=== PATIENT | male | born 1970 | race Caucasian/White ===

== ENCOUNTER 2016-11-23 05:49 | Emergency (ER) | payer MEDICAID ==
[~2016-11-23] VITALS: Ht 165.1 cm; Wt 86.5 kg
[~2016-11-23 05:49] MED LIST: ASPI-664 PO
[2016-11-23 05:53] VITALS: Ht 165.1 cm; Wt 86.5 kg
[2016-11-23] MEDS ORDERED: ONDANSETRON 4 MG INJ IV STA (06:33)
[2016-11-23] MEDS ORDERED: SOD CHLORIDE 0.9% 1,000 ML IV STA (06:33)
[2016-11-23] MEDS ORDERED: BELLADONNA/PHENOBARBITAL TAB PO STA (06:33)
[2016-11-23] MEDS ORDERED: LIDOCAINE/MYLANTA 40 ML BTL PO STA (06:33)
[2016-11-23 06:55] LABS: ADD SCAN DIFF NO
[2016-11-23 06:57] LABS: EOSINOPHILS # 0.1 10^3/ul (0.0-0.5); EOSINOPHILS % 2.7 % (0.0-7.0); HEMATOCRIT 49.3 % (42.0-52.0); HEMOGLOBIN 16.8 g/dl (14.0-18.0); LYMPHOCYTES # 1.1 10^3/ul (0.8-2.9); LYMPHOCYTES % 26.6 % (15.0-51.0); MEAN CORPUSCULAR HEMOGLOBIN 30.1 pg (29.0-33.0); MEAN CORPUSCULAR HGB CONC 34.1 g/dl (32.0-37.0); MEAN CORPUSCULAR VOLUME 88.4 fl (82.0-101.0); MEAN PLATELET VOLUME 10.9 fl (7.4-10.4); MONOCYTE # 0.6 10^3/ul (0.3-0.9); MONOCYTES % 13.3 % (0.0-11.0); NEUTROPHIL # 2.4 10^3/ul (1.6-7.5); NEUTROPHILS % 57.2 % (39.0-77.0); PLATELET COUNT 226 10^3/UL (140-415); RED BLOOD COUNT 5.58 10^6/ul (4.70-6.10); WHITE BLOOD COUNT 4.1 10^3/ul (4.8-10.8)
[2016-11-23 07:08] LABS: INR 0.99; PROTIME 13.1 Sec (12.2-14.2)
[2016-11-23 07:11] LABS: ALBUMIN 4.7 g/dl (3.3-4.9); ALBUMIN/GLOBULIN RATIO 1.2; BILIRUBIN,INDIRECT 0.3 mg/dl (0-1.1); BILIRUBIN,TOTAL 0.3 mg/dl (0.2-1.3); CALCIUM 8.8 mg/dl (8.4-10.2); CREATININE 0.82 mg/dl (0.61-1.24); TOTAL PROTEIN 8.6 g/dl (6.1-8.1)
[2016-11-23] MEDS ORDERED: LOPE2CAP PO (07:19)
[2016-11-23] MEDS ORDERED: BISM262O23 PO (07:19)
[2016-11-23] MEDS ORDERED: MAG355OR14 PO (08:12)
[2016-11-23] MEDS ORDERED: PRAM56OI TP (08:12)
--- NOTE | 2016-11-23 09:03 | RADRPT ---
PROCEDURE: CT Abdomen and Pelvis without contrast. CLINICAL INDICATION: Abdominal and pelvic pain. TECHNIQUE: CT scan of the abdomen and pelvis without contrast was performed. Coronal and sagittal reformatted images were obtained from the axial source images. Images were reviewed on a high-resolu [employer] PACS workstation. Total exam DLP is 1252.83 mGy-cm. CTDIvol is 17.54 mGy. One or more of the following dose reduction techniques were used: Automated exposure control, adjustment of the mA and/ or kV according to patient size, use of iterative reconstruction technique. COMPARISON: None. FINDINGS: The lung bases are normal. There is no pleural effusion. The liver is normal in size and attenuation. There is no focal hepatic lesion. The gallbladder and bile ducts are normal. The spleen is normal in size. There is no focal splenic lesion. Both adrenals are normal with no enlargement or mass. The pancreas is unremarkable with no mass or evidence of pancreatitis. There is no renal mass or hydronephrosis. There is no renal calculus or ureteral calculus. The abdominal aorta is not dilated. There is no retroperitoneal lymphadenopathy or mass. There is no pelvic lymphadenopathy or mass. The bladder and distal ureters are normal. The periappendiceal region is unremarkable with no evidence of appendicitis. The appendix is well se en and appears normal. The bowel and mesentery are normal. There is no free fluid or free gas. There are mild degenerative changes of the spine. The osseous structures are otherwise unremarkable with no fracture or lytic lesion. IMPRESSION: 1. No urinary tract calculus or hydronephrosis. 2. Normal appendix. 3. Mild degenerative changes of the spine. 4. Otherwise normal noncontrast CT scan of the abdomen and pelvis. RPTAT: QQ .Mauricio Moore MD, MD Date Time Electronically viewed and signed by .Mauricio Moore MD, on 11/23/2016 09:03 .R/
[2016-11-23 09:21] VITALS: BP 118/68; PULSE 70; RESP 18
--- NOTE | 2016-11-23 13:33 | ERD ---
ER Documentation Chief Complaint Date/Time DATE: 11/23/16 TIME: 13:29 Chief Complaint diarrhea yesterday and blood in stool today HPI 46-year-old man complaining of 2-3 episodes of loose stools 2 days in the last episode of diarrhea contained some blood. He states he normally does strain on the toilet. He denies melena, no fevers or chills, no anorexia, no chest pain or shortness of breath. Patient denies recent travel or antibiotic use. ROS All systems reviewed and are negative except as per history of present illness. Medications Home Meds Active Scripts Pramoxine HCl/Zinc Oxide (Hemorrhoid 1%-12.5% Ointment) 56 Gm Oint...g., 56 GM TP BID Y for PAIN, #1 TUB Prov:MARIA E METCALF MD 11/23/16 Mag Hydrox/Al Hydrox/Simeth (Maalox Advanced Suspension) 355 Ml Oral.susp, 2 TSP PO TID for PAIN, #24 OZ Prov:MARIA E METCALF MD 11/23/16 Aspirin* (Aspirin* EC) 81 Mg Tablet.dr, 81 MG PO DAILY, #30 TAB 4 Refills Prov:MUSA MCKEON MD 12/05/14 Reported Medications Bismuth Subsalicylate* (Pepto-Bismol*) 262 Mg/15 Ml Oral.susp, 15 ML PO Q6H Y for STOMACH UPSET., ML 11/23/16 Loperamide Hcl* (Imodium*) 2 Mg Capsule, 2 MG PO Q6H Y for DIARRHEA, CAP MAX 16 mg/day 11/23/16 Allergies Allergies: Coded Allergies: No Known Drug Allergy (Verified Allergy, Mild, 12/05/14) PMhx/Soc None Medical and Surgical Hx: pt denies Surgical Hx History of Surgery: No Anesthesia Reaction: No Hx Neurological Disorder: No Hx Respiratory Disorders: No Hx Cardiac Disorders: No Hx Psychiatric Problems: No Hx Miscellaneous Medical Probl: No (DM1) Hx Alcohol Use: Yes (BEER 2 CANS PER DAY/WEEK) Hx Substance Use: No Hx Tobacco Use: Yes Smoking Status: Current every day smoker FmHx Family History: No diabetes Physical Exam Vitals Vital Signs Date Time Temp Pulse Resp B/P Pulse Ox O2 Delivery O2 Flow Rate FiO2 11/23/16 09:21 70 18 118/68 99 Room Air 11/23/16 05:53 98.1 89 18 124/72 97 Physical Exam GENERAL: Well-developed, well-nourished, well-hydrated, in no apparent distress , looks nontoxic in appearance HEENT: Moist mucous membranes, pink conjunctiva, no cervical spine tenderness or step-off deformities, no goiter, no jaundice or icterus, extraocular movements intact without pain. No submandibular induration, and no pharyngeal erythema NEURO: Alert and oriented 3, cranial nerves II through XII intact bilaterally, pupils equal round reactive to light, no focal deficits or facial asymmetry, sensation intact distally Strength 5/5 in upper and lower extremities bilaterally CARDIAC: Regular rate and rhythm, no murmurs rubs or gallops LUNGS: Clear bilaterally no wheezing crackles or stridor ABDOMEN: Soft nontender, no guarding, no rigidity, no rebound, no psoas sign no obturator sign. Normoactive bowel sounds SKIN: Warm and dry to touch, no abrasions, contusions, or hematomas, no lacerations, no ecchymosis, no target lesions, and without ulcers EXTREMITIES: No clubbing cyanosis or edema, calves are bilaterally symmetrical, no Homans sign, no popliteal cord sign. Distal pulses equal and bilateral PSYCH: Normal affect without agitation or irritability Result Diagram: 11/23/16 0640 11/23/16 0640 Results 24 hrs Laboratory Tests Test 11/23/16 06:40 White Blood Count 4.110^3/ul Red Blood Count 5.5810^6/ul Hemoglobin 16.8g/dl Hematocrit 49.3% Mean Corpuscular Volume 88.4fl Mean Corpuscular Hemoglobin 30.1pg Mean Corpuscular Hemoglobin Concent 34.1g/dl Red Cell Distribution Width 12.0% Platelet Count 25678^3/UL Mean Platelet Volume 10.9fl Neutrophils % 57.2% Lymphocytes % 26.6% Monocytes % 13.3% Eosinophils % 2.7% Basophils % 0.0% Nucleated Red Blood Cells % 0.0/100WBC Neutrophils # 2.410^3/ul Lymphocytes # 1.110^3/ul Monocytes # 0.610^3/ul Eosinophils # 0.110^3/ul Basophils # 0.010^3/ul Nucleated Red Blood Cells # 0.010^3/ul Prothrombin Time 13.1Sec Prothrombin Time Ratio 1.0 INR International Normalized Ratio 0.99 Sodium Level 138mmol/L Potassium Level 4.0mmol/L Chloride Level 104mmol/L Carbon Dioxide Level 23mmol/L Anion Gap 15 Blood Urea Nitrogen 15mg/dl Creatinine 0.82mg/dl Glucose Level 242mg/dl Calcium Level 8.8mg/dl Total Bilirubin 0.3mg/dl Direct Bilirubin 0.00mg/dl Indirect Bilirubin 0.3mg/dl Aspartate Amino Transf (AST/SGOT) 33IU/L Alanine Aminotransferase (ALT/SGPT) 61IU/L Alkaline Phosphatase 98IU/L Total Protein 8.6g/dl Albumin 4.7g/dl Globulin 3.90g/dl Albumin/Globulin Ratio 1.20 Lipase 69U/L Current Medications Medications (Trade) Dose Ordered Sig/Enrico Route PRN Reason Start Time Stop Time Status Last Admin Dose Admin Sodium Chloride (NS) 1,000 ml @ 1,000 mls/hr Q1H STAT IV 11/23/16 06:33 11/23/16 07:32 DC 11/23/16 07:09 Ondansetron HCl (Zofran Inj) 4 mg ONCE STAT IV 11/23/16 06:33 11/23/16 06:35 DC 11/23/16 07:09 Miscellaneous Medication (Gi Cocktail (2)) 40 ml ONCE STAT PO 11/23/16 06:33 11/23/16 06:35 DC 11/23/16 07:09 Belladonna/ Phenobarbital () 2 tab ONCE STAT PO 11/23/16 06:33 11/23/16 06:35 DC 11/23/16 07:09 Procedures/MDM IV line was established patient was placed on marina [employer] manager rhythm strip revealed a sinus rhythm at about 80 bpm with upright P and T waves. Patient was afebrile. I administered 1 L normal saline intravenously, GI cocktail 50 cc p.o., and Zofran 4 mg IV for nausea. Patient had no episodes of vomiting while here and symptoms improved with those medications. CBC and electrolytes were unremarkable, liver function tests were normal. CT scan of the abdomen and pelvis was performed there was no acute inflammatory infectious pathology noted. Examination of the anus reveals external hemorrhoids 12 and 6:00 o'clock without active bleeding. Differential diagnoses considered, included but not limited to acute coronary syndrome, pulmonary embolism, aortic dissection, abdominal aortic aneurysm, sepsis, stroke, meningitis, encephalitis, pneumonia, appendicitis, cholecystitis , bowel obstruction, pyelonephritis, nephrolithiasis, cystitis, as well as metabolic, hematologic, and electrolyte abnormalities. As well as abscess, cellulitis, fractures, and dislocations. Patient feels much better at this time, and vital signs are normal, symptoms have improved. I did give strict instructions to return to the ED if symptoms continue or worsen, patient will otherwise follow-up with primary care physician. Patient understood instructions and agreed to plan. Departure Diagnosis: Primary Impression: Diarrhea Diarrhea type: unspecified type Qualified Code: R19.7 - Diarrhea, unspecified type Additional Impression: Hemorrhoids Hemorrhoid type: unspecified Qualified Code: K64.9 - Hemorrhoids, unspecified hemorrhoid type Condition: Good Patient Instructions: Diarrhea, Viral (Child) (Adult), Hemorrhoids MARIA E METCALF MD November 23, 2016 13:33
== END 2016-11-23 09:22 | disposition home or self-care (01) ==
LOC: E/R 05:49
DX: R19.7 Diarrhea, unspecified (principal); K64.9 Unspecified hemorrhoids; F17.210 Nicotine dependence, cigarettes, uncomplicated; E10.9 Type 1 diabetes mellitus without complications; Z79.82 Long term (current) use of aspirin
CPT/HCPCS: 36415; 74176; 80053; 83690; 85025; 85610; 96374; J2405; J7030; Z7502; Z7610

== ENCOUNTER 2017-01-17 11:11 | Emergency (ER) | payer SELFPAY ==
[~2017-01-17] VITALS: Ht 152.4 cm; Wt 86.0 kg
[~2017-01-17 11:11] MED LIST changes: +BISM262O23 PO; +LOPE2CAP PO; +MAG355OR14 PO; +PRAM56OI TP
[2017-01-17 11:21] VITALS: Ht 152.4 cm; Wt 86.0 kg
[2017-01-17] MEDS ORDERED: CLOT30CR24 TOP (11:47)
--- NOTE | 2017-01-17 11:52 | ERD ---
ER Documentation Chief Complaint Date/Time DATE: 01/17/17 TIME: 11:49 Chief Complaint rash/blisters? on genitals HPI This 2-year-old male complains of itchy rash to his genitals for last 2 weeks. It started after intercourse with a new partner. Is minimal pain, mostly itching with some redness around the glans and foreskin. Denies fevers, vomiting, shortness of the chest pain. Denies any dysuria or penile discharge. Denies any blisters. ROS All systems reviewed and are negative except as per history of present illness. Medications Home Meds Active Scripts Clotrimazole* (Clotrimazole* AF) 1% - 30 Gm Cream.gm., 1 APPLIC TOP BID for 10 Days, TUB Prov:URSZULA DUEÑAS MD 01/17/17 Pramoxine HCl/Zinc Oxide (Hemorrhoid 1%-12.5% Ointment) 56 Gm Oint...g., 56 GM TP BID Y for PAIN, #1 TUB Prov:MARIA E METCALF MD 11/23/16 Mag Hydrox/Al Hydrox/Simeth (Maalox Advanced Suspension) 355 Ml Oral.susp, 2 TSP PO TID for PAIN, #24 OZ Prov:MARIA E METCALF MD 11/23/16 Aspirin* (Aspirin* EC) 81 Mg Tablet.dr, 81 MG PO DAILY, #30 TAB 4 Refills Prov:MUSA MCKEON MD 12/05/14 Reported Medications Bismuth Subsalicylate* (Pepto-Bismol*) 262 Mg/15 Ml Oral.susp, 15 ML PO Q6H Y for STOMACH UPSET., ML 11/23/16 Loperamide Hcl* (Imodium*) 2 Mg Capsule, 2 MG PO Q6H Y for DIARRHEA, CAP MAX 16 mg/day 11/23/16 Allergies Allergies: Coded Allergies: No Known Drug Allergy (Verified Allergy, Mild, 12/05/14) PMhx/Soc History of Surgery: No Anesthesia Reaction: No Hx Neurological Disorder: No Hx Respiratory Disorders: No Hx Cardiac Disorders: No Hx Psychiatric Problems: No Hx Miscellaneous Medical Probl: No (DM1) Hx Alcohol Use: Yes (BEER 2 CANS PER DAY/WEEK) Hx Substance Use: No Hx Tobacco Use: Yes Physical Exam Vitals Vital Signs Date Time Temp Pulse Resp B/P Pulse Ox O2 Delivery O2 Flow Rate FiO2 01/17/17 11:21 98.1 72 18 150/90 99 Physical Exam Const: [] Alert, [id number]. Head: Atraumatic Eyes: Normal Conjunctiva ENT: Normal External Ears, Nose and Mouth. Neck: Full range of motion..~ No meningismus. Resp: Clear to auscultation bilaterally Cardio: Regular rate and rhythm, no murmurs Abd: Soft, non tender, non distended. Normal bowel sounds Skin: No petechiae or purpura. There is some irritation of the glans and foreskin and uncircumcised penis. Testicles are nontender normal size without masses bilaterally. There is no penile discharge. Is no vesicular lesions. There is a scant amount of whitish exudate associated with the redness or irritation. Back: No midline or flank tenderness Ext: No cyanosis, or edema Neur: Awake and alert Psych: Normal Mood and Affect Procedures/MDM Patient signs and symptoms likely balanitis without signs or symptoms to suggest herpes, urethritis no evidence of testicular torsion or additional urologic emergencies. Patient will be treated with Lotrimin further observation at home. The patient was stable with no new complaints during the ER course. Clinically, there is no current evidence to suggest meningitis, sepsis, acute abdomen, pneumonia, acute coronary syndrome, pulmonary embolism, or any other emergent condition appearing to require further evaluation or hospitalization. The patient should certainly return for any new or worsening symptoms per the aftercare instructions. They should otherwise follow-up with her primary care doctor for reevaluation this week. Departure Diagnosis: Primary Impression: Balanitis Condition: Stable Patient Instructions: Balanitis Additional Instructions: Cheque otro vez con chacko doctor primario en el proximo jeffers or regresa para mas o nueva simptomas. URSZULA DUEÑAS MD Jan 17, 2017 11:52
== END 2017-01-17 12:01 | disposition home or self-care (01) ==
LOC: FTE 11:11
DX: N48.1 Balanitis (principal); E10.9 Type 1 diabetes mellitus without complications; Z79.82 Long term (current) use of aspirin
CPT/HCPCS: 99283

== ENCOUNTER 2018-12-07 17:36 | Emergency (ER) | payer MEDICAID ==
[~2018-12-07] VITALS: Wt 81.8 kg
[~2018-12-07 17:36] MED LIST changes: -ASPI-664 PO; +ASPI-817 PO; +CLOT30CR24 TOP
[2018-12-07] MEDS ORDERED: HC30CR25 TOP (19:13)
[2018-12-07] MEDS ORDERED: CLOT30CR24 TOP (19:13)
[2018-12-07 19:27] VITALS: BP 152/91; PULSE 86; RESP 18
--- NOTE | 2018-12-07 20:51 | ERD ---
ER Documentation Chief Complaint Chief Complaint penile itch/ red/ pain x1mo. denies presence of sores. no dysuria/ no NVD. HPI This patient is a 48-year-old male with no significant past medical history presenting to the emergency department complaining of redness and itching to his glans penis intermittently for the past 1 month but worsening over the past several days. He denies any penile discharge, testicular pain, fevers, chills, or other symptoms at this time. He is monogamous with one female sexual partner and last sexual intercourse was 1 month ago. No other symptoms or complaints reported at this time. ROS All systems reviewed and are negative except as per history of present illness. Medications Home Meds Active Scripts Hydrocortisone* Topical (Hydrocortisone* Topical) 2.5%-28.3 Gm Cream..g., 1 APPLIC TOP BID, #1 TUB Prov:ASHANTI DEWEY PA-C 12/07/18 Clotrimazole* (Clotrimazole* AF) 1% - 30 Gm Cream.gm., 1 APPLIC TOP BID for 7 Days, TUB Prov:ASHANTI DEWEY PA-C 12/07/18 Clotrimazole* (Clotrimazole* AF) 1% - 30 Gm Cream.gm., 1 APPLIC TOP BID for 10 Days, TUB Prov:URSZULA DUEÑAS MD 01/17/17 Pramoxine HCl/Zinc Oxide (Hemorrhoid 1%-12.5% Ointment) 56 Gm Oint...g., 56 GM TP BID PRN for PAIN, #1 TUB Prov:MARIA E METCALF MD 11/23/16 Mag Hydrox/Al Hydrox/Simeth (Maalox Advanced Suspension) 355 Ml Oral.susp, 2 TSP PO TID for PAIN, #24 OZ Prov:MARIA E METCALF MD 11/23/16 Aspirin* (Aspirin* EC) 81 Mg Tablet.dr, 81 MG PO DAILY, #30 TAB 4 Refills Prov:MUSA MCKEON MD 12/05/14 Reported Medications Bismuth Subsalicylate* (Pepto-Bismol*) 262 Mg/15 Ml Oral.susp, 15 ML PO Q6H PRN for STOMACH UPSET., ML 11/23/16 Loperamide Hcl* (Imodium*) 2 Mg Capsule, 2 MG PO Q6H PRN for DIARRHEA, CAP MAX 16 mg/day 11/23/16 Allergies Allergies: Coded Allergies: No Known Drug Allergy (Verified Allergy, Mild, 12/05/14) PMhx/Soc History of Surgery: No Anesthesia Reaction: No Hx Neurological Disorder: No Hx Respiratory Disorders: No Hx Cardiac Disorders: No Hx Psychiatric Problems: No Hx Miscellaneous Medical Probl: No (DM1) Hx Alcohol Use: Yes (BEER 2 CANS PER DAY/WEEK) Hx Substance Use: No Hx Tobacco Use: Yes Smoking Status: Never smoker FmHx Family History: No diabetes Physical Exam Vitals Vital Signs Date Temp Pulse Resp B/P (MAP) Pulse Ox O2 O2 Flow FiO2 Time Delivery Rate 12/07/18 98.1 86 18 152/91 98 Room Air 19:27 (111) 12/07/18 98.6 98 16 137/76 97 17:48 (96) Physical Exam Const: No acute distress Head: Atraumatic Eyes: Normal Conjunctiva ENT: Normal External Ears, Nose and Mouth. Neck: Full range of motion. No meningismus. Resp: No respiratory distress. Exam: Penis: Mild erythema noted to the glans penis. Penile shaft is normal without lesions. Scrotum: Normal Hernia: None Testes/Epid: Non-tender w/ normal lie Cremaster: Reflex intact Lymph: No inguinal lymphadenopathy Discharge: None Skin: No petechiae or rashes Back: No midline or flank tenderness Ext: No cyanosis, or edema Neur: Awake and alert Psych: Normal Mood and Affect Procedures/MDM 48-year-old male presenting to the emergency department with signs and symptoms most consistent with balanitis. There is no penile discharge. I doubt sexually transmitted infection. No evidence of testicular torsion. Patient is stable and appropriate for discharge and further outpatient management with prescriptions. He was in agreement with the diagnosis, plan, need for follow- up, return precautions. Patient's blood pressure was elevated (>120/80) but appears stable without evidence of hypertension emergency or urgency. The patient is to follow-up and pursue outpatient monitoring and therapy with their primary care physician within 1 week and return immediately if they have any new, worsening, or concerning symptoms. Disclaimer: Inadvertent spelling and grammatical errors are likely due to EHR/dictation software use and do not reflect on the overall quality of patient care. Also, please note that the electronic time recorded on this note does not necessarily reflect the actual time of the patient encounter. Departure Diagnosis: Primary Impression: Balanitis Condition: Fair Patient Instructions: Balanitis Additional Instructions: Llame al doctor MAANA y krishna elvia FLAQUITA PARA DENTRO DE 1-2 BRYSON.Dgale a la secretaria que nosotros le instruimos hacer esta flaquita.Avise o llame si chacko condicin se empeora antes de la flaquita. Regresa aqui si peor o no mejor. ASHANTI DEWEY PA-C December 07, 2018 20:51
== END 2018-12-07 19:36 | disposition home or self-care (01) ==
LOC: FTE 17:36
DX: N48.1 Balanitis (principal); E10.9 Type 1 diabetes mellitus without complications; Z79.82 Long term (current) use of aspirin; Z87.891 Personal history of nicotine dependence
CPT/HCPCS: 99283